=== PATIENT | female | born 1945 | race Caucasian/White ===

== ENCOUNTER 2023-09-19 14:13 | Outpatient (OUT) | payer MEDICARE, OTHER, BC, SELFPAY ==
--- NOTE | 2023-09-19 | XR_ITS ---
The [address] [address] Patient Name: JAVIER ZAMORA MRN: [id number] date: 1945 Sex: F Assigned Patient Location: Current Patient Location: Accession/Order Number: [id number] Exam Date: 09/19/2023 14:29 Report Date: 09/24/2023 11:27 At the request of: FORTUNATO WALLACE Procedure: XR foot RT min 3V PROCEDURE: XR foot RT min 3V, XR ankle RT min 3V COMPARISON: None. 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 No acute fracture or dislocation. 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 Persistent flexion of the toes limits their evaluation SOFT TISSUES:Moderate diffuse soft tissue swelling. Vascular calcifications. EFFUSION:None visible. OTHER: Negative. XR/XR foot RT min 3V IMPRESSION: Diffuse soft tissue swelling Pes planus Electronically authenticated by: SHEILA LEHMAN Date: 09/24/2023 11:27
--- NOTE | 2023-09-19 | XR_ITS ---
The [address] [address] Patient Name: JAVIER ZAMORA MRN: [id number] date: 1945 Sex: F Assigned Patient Location: Current Patient Location: Accession/Order Number: [id number] Exam Date: 09/19/2023 14:29 Report Date: 09/24/2023 11:27 At the request of: FORTUNATO WALLACE Procedure: XR ankle RT min 3V PROCEDURE: XR foot RT min 3V, XR ankle RT min 3V COMPARISON: None. 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 No acute fracture or dislocation. 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 Persistent flexion of the toes limits their evaluation SOFT TISSUES:Moderate diffuse soft tissue swelling. Vascular calcifications. EFFUSION:None visible. OTHER: Negative. XR/XR ankle RT min 3V IMPRESSION: Diffuse soft tissue swelling Pes planus Electronically authenticated by: SHEILA LEHMAN Date: 09/24/2023 11:27
== END 2023-09-19 14:14 | disposition home or self-care (01) ==
LOC: EC 14:13
PROVIDERS: PCP Family Medicine; Visit Provider Podiatrist Foot & Ankle Surgery
DX: M25.571 Pain in right ankle and joints of right foot (principal); M21.41 Flat foot [pes planus] (acquired), right foot
CPT/HCPCS: 73610; 73630